=== PATIENT | male | born 1940 | race Caucasian/White ===

== ENCOUNTER 2020-10-29 09:26 | Observation (INO) | payer MEDICARE, OTHER ==
[~2020-10-29] VITALS: Ht 175.3 cm; Wt 77.3 kg
[2020-10-29] MEDS ORDERED: AMIODARONE HCL200 MG PO (17:09)
[2020-10-29] MEDS ORDERED: PROTONIX 40 MG40 M1 PO (17:09)
[2020-10-29] MEDS ORDERED: KEPPRA 500 MG500 MG PO (17:10)
[2020-10-29] MEDS ORDERED: BELSOMRA20 MG PO (17:10)
[2020-10-29] MEDS ORDERED: ASPIRIN EC81 MG PO (17:11)
[2020-10-29] MEDS ORDERED: HYDROCODON-ACE1 EAC2 PO (17:11)
[2020-10-29] MEDS ORDERED: CLOPIDOGREL75 MG PO (17:11)
[2020-10-29] MEDS ORDERED: NAMENDA5 MG PO (17:12)
[2020-10-29] MEDS ORDERED: METOPROLOL TART25 MG PO (17:12)
[2020-10-29] MEDS ORDERED: SYMBICORT 80-10.2 GM INH (17:13)
[2020-10-29] MEDS ORDERED: ALBUTEROL1.25 MG/3 INH (17:13)
[2020-10-29] MEDS ORDERED: FINASTERIDE5 MG PO (17:18)
[2020-10-29 22:06] LABS: BUN/CREATININE RATIO 15 (0-10)
[2020-10-30 02:57] LABS: HEMOGLOBIN 13.3 gm/dl (14.0-17.5); RED BLOOD COUNT 4.78 M/UL (4.20-5.50); WHITE BLOOD COUNT 8.2 K/UL (4.5-11.0)
[2020-10-30 03:32] LABS: BUN/CREATININE RATIO 15 (0-10)
[2020-10-30] MEDS ORDERED: AUGMENTIN 875-1 EACH PO (08:42)
== END 2020-10-30 17:11 | disposition home or self-care (01) ==
LOC: PROG CARE 16:51
PROVIDERS: Physician Assistant Medical; ADMIT Internal Medicine Infectious Disease
DX: Z45.02 Encounter for adjustment and management of automatic implantable cardiac defibrillator (principal); I25.5 Ischemic cardiomyopathy; I25.10 Atherosclerotic heart disease of native coronary artery without angina pectoris; J44.9 Chronic obstructive pulmonary disease, unspecified; F03.90 Unspecified dementia, unspecified severity, without behavioral disturbance, psychotic disturbance, mood disturbance, and anxiety; I10 Essential (primary) hypertension; E78.5 Hyperlipidemia, unspecified; I48.0 Paroxysmal atrial fibrillation; I25.2 Old myocardial infarction; Z87.891 Personal history of nicotine dependence; Z95.1 Presence of aortocoronary bypass graft; Z86.73 Personal history of transient ischemic attack (TIA), and cerebral infarction without residual deficits; Z88.1 Allergy status to other antibiotic agents; Z79.82 Long term (current) use of aspirin; Z79.02 Long term (current) use of antithrombotics/antiplatelets; Z79.899 Other long term (current) drug therapy
CPT/HCPCS: 71045; 80048; 80053; 83735; 85027; 93641; 96365; 96366; 96376; 99152; C1721; G0378; G0379; J1200; J1335; J2250; J3010; J3370; J7040; J7050; J7070

== ENCOUNTER → 2021-03-18 | Outpatient (CLI) | payer MEDICARE, OTHER ==
[~2021-03-18] MED LIST: ALBUTEROL1.25 MG/3 INH; AMIODARONE HCL200 MG PO; ASPIRIN EC81 MG PO; AUGMENTIN 875-1 EACH PO; BELSOMRA20 MG PO; CLOPIDOGREL75 MG PO; FINASTERIDE5 MG PO; HYDROCODON-ACE1 EAC2 PO; KEPPRA 500 MG500 MG PO; METOPROLOL TART25 MG PO; NAMENDA5 MG PO; PROTONIX 40 MG40 M1 PO; SYMBICORT 80-10.2 GM INH
== END ==
LOC: HEART 5 12-14 09:00
DX: I50.22 Chronic systolic (congestive) heart failure (principal); I25.5 Ischemic cardiomyopathy; I08.1 Rheumatic disorders of both mitral and tricuspid valves
CPT/HCPCS: 93306

== ENCOUNTER 2021-10-29 14:18 | Inpatient (IN) | payer MEDICARE, OTHER ==
[~2021-10-29] VITALS: Ht 175.3 cm; Wt 74.8 kg
[2021-10-29] MEDS ORDERED: LEVETIRACETAM500 MG PO (14:50)
[2021-10-29] MEDS ORDERED: GABAPENTIN300 MG PO (14:50)
--- NOTE | 2021-10-30 02:53 | NUR ---
0250- SEVERAL ATTEMPTS MADE TO OBTAIN URINE SPECIMEN ORDERED. PATIENT CONFUSED AND KEEPS PULLING AT WEE BAG APPLIED TO OBTAIN URINE. BEFORE ORDER GIVEN FOR URINE SPECIMEN PATIENT WAS WEARING BRIEF AND VOIDED VIA BRIEF, BUT NOW PATIENT IS NPO. WILL MONITOR TO OBTAIN URINE SPECIMEN.
[2021-10-30 06:06] LABS: RED BLOOD COUNT 4.1 M/UL (4.20-5.50); WHITE BLOOD COUNT 10.1 K/UL (4.5-11.0)
[2021-10-30 06:44] LABS: BUN/CREATININE RATIO 18 (0-10)
[2021-10-31 05:32] LABS: RED BLOOD COUNT 4.1 M/UL (4.20-5.50); WHITE BLOOD COUNT 11.1 K/UL (4.5-11.0)
[2021-11-01 06:12] LABS: HEMOGLOBIN 10.6 gm/dl (14.0-17.5); RED BLOOD COUNT 3.9 M/UL (4.20-5.50); WHITE BLOOD COUNT 12.4 K/UL (4.5-11.0)
[2021-11-02 05:18] LABS: HEMOGLOBIN 10.5 gm/dl (14.0-17.5); RED BLOOD COUNT 3.99 M/UL (4.20-5.50); WHITE BLOOD COUNT 10.2 K/UL (4.5-11.0)
[2021-11-03 03:52] LABS: HEMOGLOBIN 9.9 gm/dl (14.0-17.5); RED BLOOD COUNT 3.8 M/UL (4.20-5.50); WHITE BLOOD COUNT 11.7 K/UL (4.5-11.0)
--- NOTE | 2021-11-03 13:19 | NUR ---
Patient lungs sound congested bilaterally, Patient is on 5l high flow NC and sating at 88-90%. MD made aware and ordered bumex and a chest xray. Will continue to monitor.
[2021-11-04 06:41] LABS: RED BLOOD COUNT 3.87 M/UL (4.20-5.50)
[2021-11-05 07:06] LABS: HEMOGLOBIN 10.1 gm/dl (14.0-17.5); RED BLOOD COUNT 3.83 M/UL (4.20-5.50); WHITE BLOOD COUNT 14.4 K/UL (4.5-11.0)
[2021-11-06 09:47] LABS: HEMOGLOBIN 10.6 gm/dl (14.0-17.5); RED BLOOD COUNT 3.93 M/UL (4.20-5.50); WHITE BLOOD COUNT 16.8 K/UL (4.5-11.0)
[2021-11-07 03:41] LABS: HEMOGLOBIN 10.9 gm/dl (14.0-17.5); RED BLOOD COUNT 4.13 M/UL (4.20-5.50); WHITE BLOOD COUNT 17.3 K/UL (4.5-11.0)
[2021-11-08 03:18] LABS: HEMOGLOBIN 10.3 gm/dl (14.0-17.5); RED BLOOD COUNT 3.9 M/UL (4.20-5.50); WHITE BLOOD COUNT 15.5 K/UL (4.5-11.0)
[2021-11-09 06:33] LABS: HEMOGLOBIN 11.2 gm/dl (14.0-17.5); RED BLOOD COUNT 4.32 M/UL (4.20-5.50); WHITE BLOOD COUNT 12.7 K/UL (4.5-11.0)
[2021-11-10 08:16] LABS: HEMOGLOBIN 10.7 gm/dl (14.0-17.5); RED BLOOD COUNT 4.1 M/UL (4.20-5.50); WHITE BLOOD COUNT 12.9 K/UL (4.5-11.0)
--- NOTE | 2021-11-10 15:18 | NUR ---
WHEN I ASKED DR. TAYLOR ABOUT GIVING PT PO MEDS AND THAT ACCORDING TO NATALIIA (SPEECH) RECOMMENDATIONS THAT SHE HAVING NOTHING AT THIS TIME NOT EVEN MEDS, HE STATES THATS FINE TO NOT GIVE MEDS AT THIS TIME
[2021-11-11 06:15] LABS: HEMOGLOBIN 11.1 gm/dl (14.0-17.5); RED BLOOD COUNT 4.27 M/UL (4.20-5.50); WHITE BLOOD COUNT 15.3 K/UL (4.5-11.0)
[2021-11-12 04:45] LABS: HEMOGLOBIN 10.6 gm/dl (14.0-17.5); RED BLOOD COUNT 4.08 M/UL (4.20-5.50)
[2021-11-12 05:22] LABS: WHITE BLOOD COUNT 22.9 K/UL (4.5-11.0)
[2021-11-14 08:46] LABS: HEMOGLOBIN 10.6 gm/dl (14.0-17.5); RED BLOOD COUNT 4.06 M/UL (4.20-5.50)
[2021-11-14 08:49] LABS: WHITE BLOOD COUNT 13.3 K/UL (4.5-11.0)
[2021-11-14 09:18] LABS: BUN/CREATININE RATIO 47 (0-10)
[2021-11-15 07:03] LABS: BUN/CREATININE RATIO 36 (0-10)
[2021-11-16 05:42] LABS: HEMOGLOBIN 10.1 gm/dl (14.0-17.5); RED BLOOD COUNT 3.89 M/UL (4.20-5.50)
[2021-11-16 05:46] LABS: WHITE BLOOD COUNT 20.6 K/UL (4.5-11.0)
[2021-11-16 05:58] LABS: BUN/CREATININE RATIO 29 (0-10)
--- NOTE | 2021-11-16 13:24 | NUR ---
MD ordered patient to have NG tube placed, me and another RN attempted NG tube placement and was unsuccessful. MD made aware and said to keep trying for NG tube placement. Will try again.
--- NOTE | 2021-11-16 14:21 | NUR ---
Patients NG tube was placed and patient took out Ng tube and IV. MD made aware and wants the patient placed in soft restraints.
--- NOTE | 2021-11-16 15:05 | NUR ---
Patient placed in soft restraints, tolerating well. Will monitor patient. IV replaced and NG tube replaced without difficulty.
--- NOTE | 2021-11-16 15:05 | NUR ---
Patient has a positive Covid test, made aware.
[2021-11-17 03:44] LABS: HEMOGLOBIN 9.2 gm/dl (14.0-17.5); RED BLOOD COUNT 3.53 M/UL (4.20-5.50); WHITE BLOOD COUNT 16.2 K/UL (4.5-11.0)
[2021-11-17 04:25] LABS: BUN/CREATININE RATIO 28 (0-10)
--- NOTE | 2021-11-17 12:45 | NUR ---
Patient is removed out of soft wrist restraints and doing well. Patient has a sitter avaliable, will continue to monitor patient.
--- NOTE | 2021-11-17 17:12 | NUR ---
Patient pulled out NG tube, MD made aware and asked NG tube to be replaced.
[2021-11-18 03:10] LABS: HEMOGLOBIN 10.3 gm/dl (14.0-17.5)
[2021-11-18 03:11] LABS: RED BLOOD COUNT 4.01 M/UL (4.20-5.50); WHITE BLOOD COUNT 21.1 K/UL (4.5-11.0)
[2021-11-19 07:16] LABS: HEMOGLOBIN 9.9 gm/dl (14.0-17.5); RED BLOOD COUNT 3.95 M/UL (4.20-5.50); WHITE BLOOD COUNT 16.2 K/UL (4.5-11.0)
[2021-11-20 10:03] LABS: HEMOGLOBIN 10.8 gm/dl (14.0-17.5); RED BLOOD COUNT 4.17 M/UL (4.20-5.50); WHITE BLOOD COUNT 14.8 K/UL (4.5-11.0)
[2021-11-21 04:22] LABS: HEMOGLOBIN 9.1 gm/dl (14.0-17.5); WHITE BLOOD COUNT 13.8 K/UL (4.5-11.0)
[2021-11-21 04:48] LABS: RED BLOOD COUNT 3.51 M/UL (4.20-5.50)
--- NOTE | 2021-11-21 17:29 | NUR ---
contacted em[facility] and stated will send over the information
[2021-11-22 03:01] LABS: HEMOGLOBIN 9.4 gm/dl (14.0-17.5); RED BLOOD COUNT 3.74 M/UL (4.20-5.50); WHITE BLOOD COUNT 12.3 K/UL (4.5-11.0)
--- NOTE | 2021-11-22 12:06 | NUR ---
dr. marks spoken to the family/ of patient and received order for [facility].
[2021-11-23 04:39] LABS: HEMOGLOBIN 9.2 gm/dl (14.0-17.5); RED BLOOD COUNT 3.57 M/UL (4.20-5.50)
--- NOTE | 2021-11-23 15:21 | NUR ---
reported to dr. lucas patient moaning r/t swelling of the penis area when giving bath and cleaning the area. acknowledged and will write order.
--- NOTE | 2021-11-23 15:37 | NUR ---
removed arthur left hip incision site with no difficulty. patient nohelia well
[2021-11-24 04:04] LABS: HEMOGLOBIN 8.9 gm/dl (14.0-17.5); RED BLOOD COUNT 3.44 M/UL (4.20-5.50); WHITE BLOOD COUNT 11.6 K/UL (4.5-11.0)
[2021-11-25 05:02] LABS: HEMOGLOBIN 8.7 gm/dl (14.0-17.5); RED BLOOD COUNT 3.45 M/UL (4.20-5.50); WHITE BLOOD COUNT 10.6 K/UL (4.5-11.0)
[2021-11-25] MEDS ORDERED: METOPROLOL TART25 MG PO (12:33)
[2021-11-26] MEDS ORDERED: ROXANOL SO10 MG/5 ML SL (08:30)
== END 2021-11-26 12:20 | DRG 480 ==
LOC: M/S 14:18
PROVIDERS: Internal Medicine; Internal Medicine Nephrology; Physician Assistant; Physician Assistant Medical; ADMIT Internal Medicine
PROC: 0QS704Z Reposition Left Upper Femur with Internal Fixation Device, Open Approach (ICD-10-PCS; 2021-10-30)
PROC: 5A0955A Assistance with Respiratory Ventilation, Greater than 96 Consecutive Hours, High Flow/Velocity Cannula (ICD-10-PCS; 2021-11-05)
PROC: 8E0ZXY6 Isolation (ICD-10-PCS; principal; 2021-11-16)
PROC: XW033E5 Introduction of Remdesivir Anti-infective into Peripheral Vein, Percutaneous Approach, New Technology Group 5 (ICD-10-PCS; 2021-11-16)
PROC: 3E0333Z Introduction of Anti-inflammatory into Peripheral Vein, Percutaneous Approach (ICD-10-PCS; 2021-11-16)
PROC: B24BZZZ Ultrasonography of Heart with Aorta (ICD-10-PCS; 2021-11-16)
PROC: 0DH67UZ Insertion of Feeding Device into Stomach, Via Natural or Artificial Opening (ICD-10-PCS; 2021-11-17)
PROC: 3E0G76Z Introduction of Nutritional Substance into Upper GI, Via Natural or Artificial Opening (ICD-10-PCS; 2021-11-17)
DX: S72.142A Displaced intertrochanteric fracture of left femur, initial encounter for closed fracture (principal); N17.0 Acute kidney failure with tubular necrosis; J96.01 Acute respiratory failure with hypoxia; U07.1 COVID-19; J96.02 Acute respiratory failure with hypercapnia; J69.0 Pneumonitis due to inhalation of food and vomit; J15.9 Unspecified bacterial pneumonia; G92.8 Other toxic encephalopathy; I47.2 Ventricular tachycardia; E87.0 Hyperosmolality and hypernatremia; I50.22 Chronic systolic (congestive) heart failure; I13.0 Hypertensive heart and chronic kidney disease with heart failure and stage 1 through stage 4 chronic kidney disease, or unspecified chronic kidney disease; G93.1 Anoxic brain damage, not elsewhere classified; J44.0 Chronic obstructive pulmonary disease with (acute) lower respiratory infection; L89.611 Pressure ulcer of right heel, stage 1; F03.90 Unspecified dementia, unspecified severity, without behavioral disturbance, psychotic disturbance, mood disturbance, and anxiety; I25.5 Ischemic cardiomyopathy; Z96.698 Presence of other orthopedic joint implants; L89.621 Pressure ulcer of left heel, stage 1; L89.321 Pressure ulcer of left buttock, stage 1; R74.01 Elevation of levels of liver transaminase levels; E87.6 Hypokalemia; D63.1 Anemia in chronic kidney disease; I08.1 Rheumatic disorders of both mitral and tricuspid valves; K21.9 Gastro-esophageal reflux disease without esophagitis; W18.39XA Other fall on same level, initial encounter; E88.09 Other disorders of plasma-protein metabolism, not elsewhere classified; G40.909 Epilepsy, unspecified, not intractable, without status epilepticus; F17.210 Nicotine dependence, cigarettes, uncomplicated; B95.62 Methicillin resistant Staphylococcus aureus infection as the cause of diseases classified elsewhere; R13.10 Dysphagia, unspecified; N18.30 Chronic kidney disease, stage 3 unspecified; E78.5 Hyperlipidemia, unspecified; N28.1 Cyst of kidney, acquired; I25.10 Atherosclerotic heart disease of native coronary artery without angina pectoris; I49.3 Ventricular premature depolarization; Z95.810 Presence of automatic (implantable) cardiac defibrillator; Z95.1 Presence of aortocoronary bypass graft; Z95.5 Presence of coronary angioplasty implant and graft; Z87.19 Personal history of other diseases of the digestive system; Z90.49 Acquired absence of other specified parts of digestive tract; Z79.01 Long term (current) use of anticoagulants; Z79.82 Long term (current) use of aspirin; Z82.49 Family history of ischemic heart disease and other diseases of the circulatory system; Z93.1 Gastrostomy status; Z88.1 Allergy status to other antibiotic agents
CPT/HCPCS: ECHO; 36415; 36600; 71045; 73502; 76000; 76705; 80048; 80053; 80202; 81001; 82803; 82962; 83036; 83605; 83735; 83880; 84100; 84133; 84300; 85025; 85027; 85610; 86140; 86850; 86900; 86901; 87081; 89050; 92610; 93306; 94640; 94664; 94760; 97110; 97110-GP-CQ; 97116-GP-CQ; 97162; 97166; 97530; 97530-GP-CQ; A6212; C1713; J0248; J0690; J0692; J0696; J1100; J1170; J1650; J1940; J2001; J2270; J2370; J2405; J2543; J2704; J2710; J2795; J2920; J3370; J3480; J7030; J7070; J7120; P9047; U0002